=== PATIENT | male | born 1970 | race Caucasian/White ===

== ENCOUNTER 2022-05-17 12:55 | Emergency (ER) | payer OTHER ==
[2022-05-17] MEDS ORDERED: Morphine 2 MG/ML VIAL ONE (13:38)
[2022-05-17] MEDS ORDERED: Morphine 4 MG/ML VIAL ONE (13:56)
[2022-05-17 14:23] LABS: #Basophils 0.1 10x3/uL (0.0-0.2); #Eosinphils 0.1 10x3/uL (0.0-0.5); #Monocytes 0.8 10x3/uL (0.0-1.1); #Neutrophils 7.4 10x3/uL (1.5-8.4); %Basophils 0.6 % (0.0-2.0); %Eosinophils 1.2 % (0.0-6.0); %Monocytes 6.7 % (0.0-10.0); Hemoglobin 16.5 g/dL (13.5-17.5); Mean Corpuscular HGB CONC 33.5 g/dL (32.0-36.0); Mean Corpuscular Hemoglobin 28.6 pg (27.0-33.0); Mean Corpuscular Volume 85.4 fl (81.2-95.1); Mean Platelet Volume 12.9 fl (7.4-10.4); Platelet Count 279 10x3/uL (150-450); RBC Distribution Width 15.4 % (11.5-14.5); Red Blood Cell (RBC) Count 5.76 10x6/uL (4.32-5.72); White Blood Cell (WBC) Count 12.1 10x3/uL (3.5-10.5)
[2022-05-17 14:26] LABS: ALT (SGPT) 31 U/L (8-55); AST (SGOT) 26 U/L (5-34); Albumin 4.6 g/dL (3.5-5.0); Alkaline Phosphatase 48 U/L (40-110); Anion Gap 17 mmol/L (10-20); BUN (Urea Nitrogen) 24 mg/dL (8.4-25.7); Bilirubin, Total 1.4 mg/dL (0.2-1.2); Calc. Creatinine Clearance 0 mL/min (70-130); Calcium 9.9 mg/dL (7.8-10.44); Carbon Dioxide 22 mmol/L (22-29); Chloride 104 mmol/L (98-107); Estimated GFR 56; Glucose 131 mg/dL (70-105); Potassium 4.2 mmol/L (3.5-5.1); Protein, Total 7.6 g/dL (6.0-8.3); Sodium 139 mmol/L (136-145)
== END 2022-05-17 14:45 | disposition short-term general hospital (02) ==
LOC: CSHERS 12:55
DX: S62.621A Displaced fracture of middle phalanx of left index finger, initial encounter for closed fracture (principal); S62.623A Displaced fracture of middle phalanx of left middle finger, initial encounter for closed fracture; S62.625A Displaced fracture of middle phalanx of left ring finger, initial encounter for closed fracture; X58.XXXA Exposure to other specified factors, initial encounter
CPT/HCPCS: 80053; 85025; 86850; 86900; 86901; 96374; 96375; J2270